=== PATIENT | male | born 1980 | race Caucasian/White ===

== ENCOUNTER → 2018-02-14 | Outpatient (REF) | payer BC ==
[2018-02-15 14:44] LABS: FERRITIN 29 NG/ML (26-388); IRON (FE) 86 UG/DL (65-175); TOTAL IRON BINDING CAPACITY 330 UG/DL (250-450)
[2018-02-15 17:13] LABS: PERCENT SATURATION 26.1 % (19.7-50.0)
== END ==
LOC: M LAB REF 11:54
DX: D51.9 Vitamin B12 deficiency anemia, unspecified (principal)
CPT/HCPCS: 83550

== ENCOUNTER → 2019-02-08 | Outpatient (REF) | payer BC | LOC: M LAB REF 17:09 | PROVIDERS: ATTEND Internal Medicine | DX: R79.89 Other specified abnormal findings of blood chemistry (principal) ==

== ENCOUNTER → 2020-02-14 | Outpatient (REF) | payer BC | LOC: M LAB REF 18:12 | PROVIDERS: ATTEND Internal Medicine | DX: D51.9 Vitamin B12 deficiency anemia, unspecified (principal) ==